=== PATIENT | female | born 1930 | race Caucasian/White ===

== ENCOUNTER 2016-09-20 00:08 | Emergency (ER) | payer OTHER, MEDICARE ==
[~2016-09-20] VITALS: Ht 162.6 cm; Wt 72.6 kg
[~2016-09-20 00:08] MED LIST: DIOVAN PO; GLIPIZIDE PO; LEVOXYL PO; METFORMIN PO
[2016-09-20 00:10] VITALS: BP_SYST 207
--- NOTE | 2016-09-20 00:10 | NUR ---
Patient to ER bed 6 to gown for evaluation. Side rails up. Report given to FRANTZ PHAM.
--- NOTE | 2016-09-20 00:30 | NUR ---
PT STATES SHE SLIPPED AND FELL IN TO THE SHOWER AND LANDED ON HER RT SHOULDER 10/10 PAIN, UNABLE TO MOVE RT ARM. NON-RADIATING. NO KO. NO N/V/D. NO SOB OR DISTRESS. A/OX4, AFEBRILE. SAFETY PRECAUTIONS IN PLACE, WILL CONTINUE TO MONITOR.
--- NOTE | 2016-09-20 00:30 | NUR ---
ER Dr. SEGURA at bedside examining patient.
[2016-09-20] MEDS ORDERED: cloNIDine HCL 0.1 MG TABLET PO ONE (00:45)
[2016-09-20] MEDS ORDERED: traMADol HCL HCL 50 MG TABLET (ULTRAM) PO ONE (00:45)
[2016-09-20] MEDS ORDERED: KETAMINE HCL 500 MG/10 ML VIAL IVP ONE (01:00)
[2016-09-20] MEDS ORDERED: NACL 0.9% 1,000 ML IV ONE (01:00)
[2016-09-20] MEDS ORDERED: MIDAZOLAM HCL 5 MG/5 ML VIAL IVP ONE (01:00)
--- NOTE | 2016-09-20 01:07 | NUR ---
Moved pt to bed 1 for moderate sedation.
[2016-09-20] MEDS ORDERED: ONDANSETRON HCL 4 MG/2 ML VIAL IVP ONE (01:15)
--- NOTE | 2016-09-20 01:43 | NUR ---
TIME OUT PREFORMED PRIOR TO MODERATE SEDATION, DR. SEGURA PRESENT, ANTHONY PRESENT, ROMEO PRESENT, DENG PRESENT.
[2016-09-20 04:30] VITALS: BP_SYST 141
--- NOTE | 2016-09-20 04:30 | NUR ---
Patient given written and verbal discharge instructions and verbalizes understanding. ER MD discussed with patient the results and treatment provided. Patient in stable condition. ID arm band removed. IV catheter removed intact and dressing applied, no active bleeding. Rx of TRAMADOL AND MOTRIN given. Patient educated on pain management and to follow up with PMD. Pain Scale 3/10, STATES PAIN IS TOLERABLE. Opportunity for questions provided and answered.
== END 2016-09-20 04:30 | disposition home or self-care (01) ==
LOC: SED 00:08
DX: S43.004A Unspecified dislocation of right shoulder joint, initial encounter (principal); S60.221A Contusion of right hand, initial encounter; R07.89 Other chest pain; E11.9 Type 2 diabetes mellitus without complications; I10 Essential (primary) hypertension; Z88.5 Allergy status to narcotic agent; W18.2XXA Fall in (into) shower or empty bathtub, initial encounter; Y93.E1 Activity, personal bathing and showering; Y92.091 Bathroom in other non-institutional residence as the place of occurrence of the external cause; Y99.8 Other external cause status
CPT/HCPCS: 23650; 73030; 73130; 96374; 99152; 99285; J2250; J2405; 96361

== ENCOUNTER 2017-12-03 17:46 | Inpatient (IN) | payer OTHER, MEDICARE ==
[~2017-12-03] VITALS: Ht 162.6 cm; Wt 79.4 kg
[2017-12-03 17:54] VITALS: BP_SYST 139
[2017-12-03 19:00] LABS: BILIRUBIN,URINE NEGATIVE (NEGATIVE); BLOOD, URINE NEGATIVE (NEGATIVE); CLARITY/URINE SL CLOUDY (CLEAR); COLOR,URINE YELLOW (YELLOW); GLUCOSE,URINE NEGATIVE (NEGATIVE); KETONES,URINE NEGATIVE (NEGATIVE); LEUKOCYTE ESTERASE ,URINE 1+ (NEGATIVE); NITRITE, URINE NEGATIVE (NEGATIVE); PH,URINE 5.5 (5.0-8.0); PROTEIN URINE NEGATIVE (NEGATIVE); UROBILINOGEN,URINE 0.2 (0.2-1.0)
[2017-12-03 19:10] LABS: BACTERIA,URINE MANY /HPF (None Seen); RBC,URINE 0-3 /HPF (0-3); WBC,URINE 20-50 /HPF (0-3)
[2017-12-03 19:11] LABS: MUCUS,URINE 2+ /LPF (None Seen)
[2017-12-03 19:23] LABS: ANION GAP 13 (5-15); CALCIUM 9.1 mg/dL (8.4-11.0); CHLORIDE 81 mmol/L (98-107); CREATININE 1.58 mg/dL (0.55-1.30); GLUCOSE 67 mg/dL (70-99); PROTHROMBIN TIME 9.9 SECS (9.5-12.5); SODIUM SERUM 120 mmol/L (136-145); UREA NITROGEN, BLOOD 32 mg/dL (8-21)
[2017-12-03 19:28] LABS: ALANINE AMINOTRANSFERASE 27 U/L (12-78); ASPARTATE AMINOTRANSFERASE 25 U/L (10-37); LIPASE 308 U/L (73-393); TOTAL BILIRUBIN 0.4 mg/dL (0.0-1.0)
[2017-12-03 19:34] LABS: HEMATOCRIT 32.5 % (36-48); HEMOGLOBIN 11.5 g/dL (12.0-16.0); MEAN CORPUSCULAR HEMOGLOBIN 32 pg (27-31); MEAN CORPUSCULAR HGB CONC 36 % (32-36); MEAN CORPUSCULAR VOLUME 91 fL (79.0-98.0); RED BLOOD CELL COUNT(AUTO) 3.56 MIL/uL (4.2-6.2); WHITE BLOOD COUNT (AUTO) 7.7 K/uL (4.8-10.8)
[2017-12-03 19:35] LABS: BASOPHILS % (AUTO) 0.5 % (0.0-2.0); EOSINOPHILS # (AUTO) 0.1 K/uL (0.0-0.4); EOSINOPHILS % (AUTO) 1.5 % (0.0-4.0); LYMPHOCYTES # (AUTO) 1.7 K/uL (1.0-5.5); LYMPHOCYTES % (AUTO) 21.6 % (20.5-51.5); MONOCYTES # (AUTO) 0.4 K/uL (0.0-1.0); MONOCYTES % (AUTO) 5.5 % (1.7-9.3); NEUTROPHILS # (AUTO) 5.5 K/uL (1.8-7.7); NEUTROPHILS % (AUTO) 70.9 % (40.0-70.0); PLATELET COUNT (AUTO) 331 K/uL (130-430); RED CELL DISTRIBUTION WIDTH 12.3 % (9.0-15.0)
[2017-12-03 19:45] LABS: POTASSIUM 2.7 mmol/L (3.5-5.1)
[2017-12-03] MEDS ORDERED: GLU500 PO (20:04)
[2017-12-03] MEDS ORDERED: GLIP5TAB13 PO (20:04)
[2017-12-03] MEDS ORDERED: VALS320T2 PO (20:04)
[2017-12-03] MEDS ORDERED: LEVO88TA2 PO (20:04)
[2017-12-03] MEDS ORDERED: ASPI-1155 PO (20:04)
[2017-12-03] MEDS ORDERED: METO-442 PO (20:04)
[2017-12-03] MEDS ORDERED: HYDR50TA3 PO (20:04)
[2017-12-03] MEDS ORDERED: OMEP40CA33 PO (20:04)
[2017-12-03] MEDS ORDERED: LIP10 PO (20:04)
[2017-12-03] MEDS ORDERED: POTASSIUM CHLORIDE 20 MEQ/PKT PACKET PO ONE (21:30)
[2017-12-03] MEDS ORDERED: KCL 10 mEq in 50 mL (PREMIX) 50 ML IV ONE (21:30)
[2017-12-03] MEDS ORDERED: DEXTROSE 50% JECT 50 ML DISP.SYRIN IVP PRN (21:45)
[2017-12-03] MEDS ORDERED: INSULIN REGULAR, HUMAN 100 UNITS/ML, 10 ML VIAL (novoLIN R) SUBCUT PRN (21:45)
[2017-12-03 22:16] VITALS: BP_SYST 139
[2017-12-03 22:35] VITALS: BP_SYST 155
[2017-12-03] MEDS ORDERED: PIOG15TA8 PO (23:07)
[2017-12-03] MEDS ORDERED: AMLO5TAB4 PO (23:07)
[2017-12-03] MEDS: NACL 0.9% 1,000 ML IV SCH (23:30)
[2017-12-03 23:58] VITALS: BP_SYST 157
[2017-12-04] MEDS ORDERED: SODIUM CHLORIDE 3% *HI-ALERT* 100 ML IV ONE
[2017-12-04] MEDS ORDERED: SODIUM CHLORIDE 3% *HI-ALERT* 500 ML IV ONE (01:30)
[2017-12-04] MEDS ORDERED: ZOLPIDEM TARTRATE 5 MG TABLET PO SCH ×2 (02:00→21:00)
[2017-12-04] MEDS ORDERED: ZOLPIDEM TARTRATE 5 MG TABLET ONE (02:00)
[2017-12-04 04:04] LABS: BASOPHILS # (AUTO) 0.1 K/uL (0.0-0.2); BASOPHILS % (AUTO) 0.8 % (0.0-2.0); EOSINOPHILS # (AUTO) 0.2 K/uL (0.0-0.4); HEMATOCRIT 30.7 % (36-48); HEMOGLOBIN 10.5 g/dL (12.0-16.0); LYMPHOCYTES # (AUTO) 1.8 K/uL (1.0-5.5); LYMPHOCYTES % (AUTO) 24.3 % (20.5-51.5); MEAN CORPUSCULAR HEMOGLOBIN 31 pg (27-31); MEAN CORPUSCULAR HGB CONC 34 % (32-36); MEAN CORPUSCULAR VOLUME 92 fL (79.0-98.0); MONOCYTES # (AUTO) 0.6 K/uL (0.0-1.0); MONOCYTES % (AUTO) 7.7 % (1.7-9.3); NEUTROPHILS # (AUTO) 4.7 K/uL (1.8-7.7); NEUTROPHILS % (AUTO) 64.2 % (40.0-70.0); PLATELET COUNT (AUTO) 319 K/uL (130-430); RED BLOOD CELL COUNT(AUTO) 3.35 MIL/uL (4.2-6.2); RED CELL DISTRIBUTION WIDTH 12.5 % (9.0-15.0); WHITE BLOOD COUNT (AUTO) 7.4 K/uL (4.8-10.8)
[2017-12-04 04:31] LABS: ALANINE AMINOTRANSFERASE 26 U/L (12-78); ALBUMIN 3.5 g/dL (3.4-4.8); ANION GAP 7 (5-15); ASPARTATE AMINOTRANSFERASE 23 U/L (10-37); CHLORIDE 90 mmol/L (98-107); CHOLESTEROL 166 mg/dL (<200); CREATININE 1.51 mg/dL (0.55-1.30); FREE T4 (FREE THYROXINE) 0.8 ng/dL (0.6-1.6); GLUCOSE 54 mg/dL (70-99); HDL CHOLESTEROL 71 mg/dL (>55); LDL CHOLESTEROL 80 mg/dL (<100); PHOSPHORUS 3.1 mg/dL (2.7-4.5); SODIUM SERUM 124 mmol/L (136-145); TOTAL BILIRUBIN 0.4 mg/dL (0.0-1.0); TRIGLYCERIDES 85 mg/dL (30-150); UREA NITROGEN, BLOOD 27 mg/dL (8-21)
[2017-12-04 05:30] VITALS: BP_SYST 159
[2017-12-04] MEDS: OMEPRAZOLE 20 MG CAPSULE.DR (PriLOSEC) PO SCH (06:34)
[2017-12-04] MEDS: LEVOTHYROXINE SODIUM 0.088 MG TABLET PO SCH (07:27)
[2017-12-04 08:00] VITALS: BP_SYST 139
[2017-12-04] MEDS ORDERED: metFORMIN HCL 500 MG TABLET PO SCH (08:00)
[2017-12-04] MEDS ORDERED: POTASSIUM CHLORIDE 20 MEQ TAB.PRT.SR PO ONE (09:15)
[2017-12-04] MEDS ORDERED: KCL 20 mEq in 100 mL (PREMIX) 100 ML IV ONE (09:15)
[2017-12-04] MEDS: HYDROCHLOROTHIAZIDE 25 MG TABLET (HCTZ) PO SCH (10:20)
[2017-12-04] MEDS: ASPIRIN 81 MG TAB.CHEW PO SCH (10:20)
[2017-12-04] MEDS: ATORVASTATIN 10 MG TABLET PO SCH (10:21)
[2017-12-04] MEDS: METOPROLOL TARTRATE 50 MG TABLET PO SCH ×2 (10:21→21:00)
[2017-12-04] MEDS: VALSARTAN 160 MG TABLET (DIOVAN) PO SCH (10:21)
[2017-12-04 12:40] VITALS: BP_SYST 138
[2017-12-04] MEDS ORDERED: LIDOCAINE JECT IV ONE (13:30)
[2017-12-04] MEDS ORDERED: COMMUNICATION ORDER XX ONE (13:30)
[2017-12-04] MEDS ORDERED: NS 0.45% IV ONE (13:30)
[2017-12-04] MEDS ORDERED: POTASSIUM CHLORIDE IV ONE (13:30)
[2017-12-04] MEDS: NACL 0.9% 1,000 ML IV SCH ×2 (15:19→22:54)
[2017-12-04] MEDS ORDERED: MUPIROCIN 2% TOPICAL OINTMENT 22 GM NS PRN (15:30)
[2017-12-04] MEDS ORDERED: DOCUSATE SODIUM 100 MG CAPSULE PO PRN (15:30)
[2017-12-04] MEDS ORDERED: POTASSIUM CHLORIDE 20 MEQ TAB.PRT.SR PO PRN (15:30)
[2017-12-04] MEDS ORDERED: DEXTROSE 50% JECT 50 ML DISP.SYRIN IVP PRN (15:30)
[2017-12-04] MEDS ORDERED: ACETAMINOPHEN 325 MG TABLET PO PRN (15:30)
[2017-12-04] MEDS ORDERED: MORPHINE 2 MG/ML INJ. SYRINGE IVP PRN ×2 (15:30)
[2017-12-04] MEDS ORDERED: LORazepam 2 MG/ML VIAL IVP PRN (15:30)
[2017-12-04] MEDS ORDERED: ONDANSETRON HCL 4 MG/2 ML VIAL IVP PRN (15:30)
[2017-12-04] MEDS ORDERED: MAGNESIUM SULFATE 50 ML IV PRN (15:30)
[2017-12-04] MEDS ORDERED: INSULIN ASPART 100 UNITS/ML, 10 ML VIAL (NovoLOG) SUBCUT PRN (15:30)
[2017-12-04 15:56] LABS: ANION GAP 6 (5-15); CALCIUM 8.9 mg/dL (8.4-11.0); CHLORIDE 93 mmol/L (98-107); CREATININE 1.81 mg/dL (0.55-1.30); GLUCOSE 125 mg/dL (70-99); POTASSIUM 3.8 mmol/L (3.5-5.1); SODIUM SERUM 127 mmol/L (136-145); UREA NITROGEN, BLOOD 26 mg/dL (8-21)
[2017-12-04] MEDS ORDERED: amLODIPine BESYLATE 5 MG TABLET PO ONE (16:15)
[2017-12-04] MEDS ORDERED: guaiFENesin/DEXTROMETHORPHAN 10 ML UDC PO PRN (16:15)
[2017-12-04 16:40] VITALS: BP_SYST 175
[2017-12-04] MEDS ORDERED: cefTRIAXone 1 GM in D5W 50 ML IV ONE (16:45)
[2017-12-04] MEDS ORDERED: LACTOBACILLUS RHAMNOSUS GG 1 CAP CAPSULE PO ONE (16:45)
[2017-12-04] MEDS: metroNIDAZOLE 500 mg/NS 100 ML IV SCH ×2 (17:22→22:51)
[2017-12-04 19:00] VITALS: BP_SYST 178
[2017-12-04 20:00] VITALS: BP_SYST 175
[2017-12-04] MEDS ORDERED: cloNIDine HCL 0.1 MG TABLET PO PRN (22:15)
[2017-12-04] MEDS ORDERED: ENALAPRILAT DIHYDRATE 1.25 MG/ML VIAL IVP SCH (22:30)
[2017-12-04] MEDS ORDERED: amLODIPine BESYLATE 5 MG TABLET PO SCH (23:00)
[2017-12-05] MEDS: ZOLPIDEM TARTRATE 5 MG TABLET PO PRN ×2 (00:23→20:50)
[2017-12-05 00:32] VITALS: BP_SYST 125
[2017-12-05] MEDS: metroNIDAZOLE 500 mg/NS 100 ML IV SCH (06:20)
[2017-12-05] MEDS: OMEPRAZOLE 20 MG CAPSULE.DR (PriLOSEC) PO SCH (06:21)
[2017-12-05] MEDS: LEVOTHYROXINE SODIUM 0.088 MG TABLET PO SCH (06:22)
[2017-12-05 06:51] LABS: BASOPHILS % (AUTO) 0.6 % (0.0-2.0); EOSINOPHILS # (AUTO) 0.3 K/uL (0.0-0.4); EOSINOPHILS % (AUTO) 4.8 % (0.0-4.0); HEMATOCRIT 26.5 % (36-48); HEMOGLOBIN 9.4 g/dL (12.0-16.0); LYMPHOCYTES # (AUTO) 1.6 K/uL (1.0-5.5); LYMPHOCYTES % (AUTO) 24.4 % (20.5-51.5); MEAN CORPUSCULAR HEMOGLOBIN 32 pg (27-31); MEAN CORPUSCULAR HGB CONC 35 % (32-36); MEAN CORPUSCULAR VOLUME 89 fL (79.0-98.0); MONOCYTES # (AUTO) 0.7 K/uL (0.0-1.0); MONOCYTES % (AUTO) 9.9 % (1.7-9.3); NEUTROPHILS # (AUTO) 4.1 K/uL (1.8-7.7); NEUTROPHILS % (AUTO) 60.3 % (40.0-70.0); PLATELET COUNT (AUTO) 293 K/uL (130-430); RED BLOOD CELL COUNT(AUTO) 2.97 MIL/uL (4.2-6.2); RED CELL DISTRIBUTION WIDTH 12.7 % (9.0-15.0); WHITE BLOOD COUNT (AUTO) 6.7 K/uL (4.8-10.8)
[2017-12-05 07:09] LABS: ANION GAP 10 (5-15); CALCIUM 8.7 mg/dL (8.4-11.0); CHLORIDE 92 mmol/L (98-107); CREATININE 1.74 mg/dL (0.55-1.30); GLUCOSE 79 mg/dL (70-99); PHOSPHORUS 2.8 mg/dL (2.7-4.5); POTASSIUM 3.3 mmol/L (3.5-5.1); SODIUM SERUM 127 mmol/L (136-145); UREA NITROGEN, BLOOD 26 mg/dL (8-21)
[2017-12-05] MEDS ORDERED: amLODIPine BESYLATE 5 MG TABLET PO SCH (09:00)
[2017-12-05] MEDS: ASPIRIN 81 MG TAB.CHEW PO SCH (09:23)
[2017-12-05] MEDS: cefTRIAXone 1 GM in D5W 50 ML IV SCH (09:23)
[2017-12-05] MEDS: ATORVASTATIN 10 MG TABLET PO SCH (09:23)
[2017-12-05] MEDS: LACTOBACILLUS RHAMNOSUS GG 1 CAP CAPSULE PO SCH (09:24)
[2017-12-05] MEDS: PIOGLITAZONE HCL 15 MG TABLET PO SCH (09:24)
[2017-12-05] MEDS: HYDROCHLOROTHIAZIDE 25 MG TABLET (HCTZ) PO SCH (09:25)
[2017-12-05] MEDS: amLODIPine BESYLATE 5 MG TABLET PO SCH (09:25)
[2017-12-05] MEDS: VALSARTAN 160 MG TABLET (DIOVAN) PO SCH (09:25)
[2017-12-05] MEDS: METOPROLOL TARTRATE 50 MG TABLET PO SCH ×2 (09:26→20:50)
[2017-12-05 11:20] VITALS: BP_SYST 113
[2017-12-05 15:19] VITALS: BP_SYST 124
[2017-12-05 20:00] VITALS: BP_SYST 148
[2017-12-05] MEDS: NACL 0.9% 1,000 ML IV SCH (23:12)
[2017-12-06 00:51] VITALS: BP_SYST 170
[2017-12-06 05:53] LABS: HEMOGLOBIN A1C 5.3 % (4.8-5.6)
[2017-12-06] MEDS: LEVOTHYROXINE SODIUM 0.088 MG TABLET PO SCH (06:41)
[2017-12-06] MEDS: OMEPRAZOLE 20 MG CAPSULE.DR (PriLOSEC) PO SCH (06:42)
[2017-12-06 06:48] LABS: BASOPHILS % (AUTO) 0.4 % (0.0-2.0); EOSINOPHILS # (AUTO) 0.4 K/uL (0.0-0.4); HEMATOCRIT 28.9 % (36-48); HEMOGLOBIN 9.8 g/dL (12.0-16.0); LYMPHOCYTES # (AUTO) 1.6 K/uL (1.0-5.5); LYMPHOCYTES % (AUTO) 21.9 % (20.5-51.5); MEAN CORPUSCULAR HEMOGLOBIN 32 pg (27-31); MEAN CORPUSCULAR HGB CONC 34 % (32-36); MEAN CORPUSCULAR VOLUME 93 fL (79.0-98.0); MONOCYTES # (AUTO) 0.6 K/uL (0.0-1.0); MONOCYTES % (AUTO) 7.6 % (1.7-9.3); NEUTROPHILS # (AUTO) 4.8 K/uL (1.8-7.7); NEUTROPHILS % (AUTO) 64.1 % (40.0-70.0); PLATELET COUNT (AUTO) 283 K/uL (130-430); RED BLOOD CELL COUNT(AUTO) 3.12 MIL/uL (4.2-6.2); RED CELL DISTRIBUTION WIDTH 12.6 % (9.0-15.0); WHITE BLOOD COUNT (AUTO) 7.4 K/uL (4.8-10.8)
[2017-12-06 07:10] LABS: ANION GAP 8 (5-15); CALCIUM 8.9 mg/dL (8.4-11.0); CHLORIDE 95 mmol/L (98-107); CREATININE 1.75 mg/dL (0.55-1.30); GLUCOSE 95 mg/dL (70-99); POTASSIUM 3.6 mmol/L (3.5-5.1); SODIUM SERUM 129 mmol/L (136-145); THYROID STIMULATING HORMONE 1.35 uIu/mL (0.34-4.82); UREA NITROGEN, BLOOD 28 mg/dL (8-21)
[2017-12-06] MEDS: VALSARTAN 160 MG TABLET (DIOVAN) PO SCH (08:15)
[2017-12-06] MEDS: PIOGLITAZONE HCL 15 MG TABLET PO SCH (08:15)
[2017-12-06] MEDS: ATORVASTATIN 10 MG TABLET PO SCH (08:15)
[2017-12-06] MEDS: LACTOBACILLUS RHAMNOSUS GG 1 CAP CAPSULE PO SCH (08:16)
[2017-12-06] MEDS: ASPIRIN 81 MG TAB.CHEW PO SCH (08:16)
[2017-12-06] MEDS: METOPROLOL TARTRATE 50 MG TABLET PO SCH (08:16)
[2017-12-06] MEDS: amLODIPine BESYLATE 5 MG TABLET PO SCH (08:16)
[2017-12-06] MEDS: cefTRIAXone 1 GM in D5W 50 ML IV SCH (08:17)
[2017-12-06 08:30] VITALS: BP_SYST 126
[2017-12-06] MEDS ORDERED: FUROSEMIDE 20 MG TABLET PO SCH (09:00)
[2017-12-06 09:50] VITALS: BP_SYST 122
[2017-12-06 11:16] VITALS: BP_SYST 135
[2017-12-06 15:00] VITALS: BP_SYST 130
== END 2017-12-06 16:20 | DRG 391 ==
LOC: SED 17:46 → STU 21:41
PROVIDERS: ADMIT Family Medicine; ATTEND Family Medicine
DX: K52.9 Noninfective gastroenteritis and colitis, unspecified (principal); N17.0 Acute kidney failure with tubular necrosis; E87.1 Hypo-osmolality and hyponatremia; N39.0 Urinary tract infection, site not specified; B96.20 Unspecified Escherichia coli [E. coli] as the cause of diseases classified elsewhere; E03.9 Hypothyroidism, unspecified; E11.65 Type 2 diabetes mellitus with hyperglycemia; D64.9 Anemia, unspecified; E87.6 Hypokalemia; E87.8 Other disorders of electrolyte and fluid balance, not elsewhere classified; K57.30 Diverticulosis of large intestine without perforation or abscess without bleeding; K44.9 Diaphragmatic hernia without obstruction or gangrene; K42.9 Umbilical hernia without obstruction or gangrene; N32.89 Other specified disorders of bladder; E78.5 Hyperlipidemia, unspecified; I10 Essential (primary) hypertension; K21.9 Gastro-esophageal reflux disease without esophagitis; R26.81 Unsteadiness on feet; Z88.5 Allergy status to narcotic agent; Z90.710 Acquired absence of both cervix and uterus; Z79.82 Long term (current) use of aspirin; Z79.899 Other long term (current) drug therapy
CPT/HCPCS: 36415; 70450-TC; 71045; 76770; 80048; 80053; 80061; 81000-TC; 82140-TC; 82533; 82962; 83036; 83605; 83690-TC; 83735-TC; 83880; 83930-TC; 83935-TC; 84100-TC; 84295-TC; 84302-TC; 84439; 84443-TC; 84479; 84480; 85025; 85610-TC; 87040-TC; 87086; 87186-TC; 93005; 93306; 93880; 96365; 97116-GP; 97530-GP; 99285; J0696; J1815; J2270; J3480; J3490; J7030; J7060